=== PATIENT | male | born 1970 | race African-American/Black ===

== ENCOUNTER 2017-09-02 20:34 | Emergency (ER) | payer SELFPAY ==
[~2017-09-02] VITALS: Ht 193 cm; Wt 92.0 kg
[2017-09-02] MEDS ORDERED: KETOROLAC 15MG/ML VIAL IM NR (21:15)
[2017-09-03] MEDS ORDERED: KETOROLAC 60MG/2ML VIAL IM STA (02:24)
[2017-09-03 04:29] VITALS: BP 110/75
== END 2017-09-03 05:56 | disposition home or self-care (01) ==
LOC: ER 21:19
DX: S16.1XXA Strain of muscle, fascia and tendon at neck level, initial encounter (principal); X58.XXXA Exposure to other specified factors, initial encounter; M79.601 Pain in right arm; M79.602 Pain in left arm; R20.2 Paresthesia of skin; Y93.I9 Activity, other involving external motion; Y92.89 Other specified places as the place of occurrence of the external cause; Y99.8 Other external cause status
CPT/HCPCS: 72125; 96372; 99284; J1885